=== PATIENT | female | born 1945 | race Caucasian/White ===

== ENCOUNTER → 2020-07-04 09:55 | Outpatient (CLI) | payer MEDICARE, OTHER, SELFPAY ==
[2020-07-06 15:33] LABS: COVID19 Sendout Not Detected (Not Detect)
== END ==
PROVIDERS: Visit Provider Physician Assistant
DX: Z11.59 Encounter for screening for other viral diseases (principal)
CPT/HCPCS: 87635

== ENCOUNTER 2020-07-07 08:42 | Day surgery (SDC) | payer MEDICARE, OTHER, SELFPAY ==
[2020-07-02 12:07] VITALS: BMI 28.6
[2020-07-07] VITALS (15 sets, daily range): BP systolic 102–141; BP diastolic 35–94; PULSE 65–77; RESP 10–75; TEMP 36.2–36.7; O2SAT 94–99; BMI 28.6
--- NOTE | 2020-07-07 07:43 | DI.RAD.S_ITS ---
PROCEDURE: XR KNEE LT 1TO2V INDICATIONS: post op total knee TECHNIQUE: 2 view(s) of the knee acquired. COMPARISON: None. FINDINGS: Bones: Patient is status post knee joint arthroplasty. Hardware components are in expected positions. Visualized bony structures are intact. Soft tissues: Overlying postoperative changes are noted. IMPRESSION: Expected postoperative appearance Dictated by: Roland Romeo M.D. on 07/07/2020 at 14:45 Approved by: Roland Romeo M.D. on 07/07/2020 at 14:46
[2020-07-07] MEDS: LACTATED RINGERS 1,000 ML 42 ML IV (09:30)
[2020-07-07] MEDS: ACETAMINOPHEN 325 MG TABLET 975 MG PO (09:44)
[2020-07-07] MEDS: CELECOXIB 200 MG CAPSULE PO (09:44)
[2020-07-07] MEDS: PREGABALIN 75 MG CAPSULE PO (09:45)
--- NOTE | 2020-07-07 09:58 | PM.PREOP ---
Pre-operative Note COVID-19 COVID-19 status: Negative Result date/Date tested (Pos, Neg/Pending): 07/04/20 Interval Note History & Physical reviewed/Exam performed by Physician: Yes Changes to H&P: No
--- NOTE | 2020-07-07 10:10 | P.OP_ITS ---
Operative Date/Time/Diagnoses Date of procedure: 07/07/20 Time of procedure: 12:20 Pre-op diagnosis: Left knee osteoarthritis Post-op diagnosis: same Procedure & Clinicians Procedure: Left total knee replacement Same procedure as scheduled: Yes Indications: The patient has had progressively worsening left knee pain with radiographic changes consistent with arthritis. Non-operative management has failed and the patient has requested total knee replacement. The risks, benefits and alternatives to surgery were discussed with the patient prior to proceeding. Risks discussed included, but were not limited to, failure to relieve pain, stiffness, infection, nerve damage, deep venous thrombosis, pulmonary embolism, stroke, coma, heart attack, permanent paralysis and , as well as the potential need for eventual revision of the prosthetic. Surgeon: Frederick Santoro Mechanical Oxidizer: Cortney Campos Click Yes if Unassisted: No Anesthesia Type: Local Operative Notes Findings: Significant lateral osteoarthritis with moderate patellofemoral change. Relative preservation of the medial compartment. Closure Type: primary Specimen(s): none sent Prosthetic devices, grafts, tissues, transplants, or devices: Implants used in this procedure were manufactured by the [employer] and [email or web address] and included the BCS II Journey total knee replacement with a size 5 left cobalt chromium femur, a size 4 left non porous tibial base plate, a 10 mm cross-linked polyethylene tibial insert and a 32 mm oval Kendal II patella. Applied: implant(s) Estimated Blood Loss (mL): 25 Blood products transfused: none Tourniquet time (min): 46 Procedure in detail: The patient was seen in the pre-operative area, where the left knee was identified as the operative site and this was marked with my initials. The patient received pre-operative antibiotics, and was taken to the operating room and placed on the operative table in the supine position. After satisfactory anesthesia, a multimedia services coordinator out? was performed. The left leg was encircled with a tourniquet about the proximal thigh, and the leg was prepared from the toes to the tourniquet with ChloroPrep in the usual fashion and draped through sterile drapes. The leg was elevated and exsanguinated with Eschmark bandage and the tourniquet inflated to 250 mmHg pressure. The knee was approached through an approximately 18 cm incision centered over the patella and carried into the knee through a medial parapatellar arthrotomy. The anterior osteophytes and soft tissues were removed. The rotational landmarks of [place]'s line and the transepicondylar axis were marked on the femur with electrocautery, and intramedullary guide holes for the femur and tibia were created. The distal femoral cut was made in 6 degrees of valgus using the intramedullary guide at the primary cut setting. The proximal tibial cut was then made using the intramedullary guide, taking 9 mm of bone off the less involved side. The extension gap was checked and the rotation of the femoral component confirmed with the gap balancing blocks. The anterior, posterior and chamfer cuts were then made. The posterior osteophytes and soft tissues were then removed. The posterior capsule was injected with part of a mixture of 60 ml 0.25% Marcaine mixed with 20 ml Exparel and 4 mg of morphine for post-operative pain control. The remainder of this mixture was injected into the capsule and subcutaneous tissues during cement curing. The tibia was prepared with the rotation set by an extra medullary guide. Trial tibial and femoral components were then placed and the intercondylar notch cut through the femoral trial. Range of motion was 0-135 degrees, with good stability throughout the range. The patella was then cut to accommodate the patellar prosthetic. There was no need for a lateral release. The trials were then removed, and the femoral hole plugged with a bone plug. The bone was prepared with pulsatile lavage, and dried with a sponge. Cement was applied and the final prosthetics placed. Excess cement was removed during and after cement curing. After confirming there was no extruded cement posteriorly, the final tibial insert was placed. The knee was copiously irrigated and the tourniquet deflated. Hemostasis was obtained. The capsule was closed with interrupted # 2 polyester sutures. The subcutaneous layer was closed with 3-0 Vicryl, and the skin with a running 3-0 V-Lock suture and Dermabond. An Aquacel Ag dressing was applied and the patient was taken to recovery having tolerated the procedure well. Complications: none Post-operative Condition: stable Disposition: PACU Plan for aftercare: The patient will be maintained on a standard total knee replacement protocol with weight bearing as tolerated. The patient will receive aspirin and sequential compression devices for DVT prophylaxis. The patient will be discharged home when safe for the home environment.
[2020-07-07] MEDS: CEFAZOLIN 2 GM/100 ML FROZ.PIGGY IV (10:50)
[2020-07-07] MEDS: TRANEXAMIC ACID 1,000 MG VIAL 1000 MG INJ (11:05)
--- NOTE | 2020-07-07 11:09 | SUR.OPER ---
Supine on padded OR bed. Pillow under head, arms secured on padded armboards <90 degree abduction. Safety belt across torso. Non-operative leg secured with tape over blanket over lower leg. Operative leg secured in DeMayo positioner. Foam padded brace at thigh of operative leg.
[2020-07-07] MEDS: MORPHINE 4 MG/ML INJ INJ (11:22)
[2020-07-07] MEDS: BUPIVACAINE LIPOSOME 266 MG/20 ML VIAL INJ (11:23)
[2020-07-07] MEDS: BUPIVACAINE 0.25% W/ EPI 30 ML VIAL 60 ML INJ (11:23)
[2020-07-07] MEDS: fentaNYL 100 MCG/2 ML INJ IV ×3 (13:03→13:37)
[2020-07-07] MEDS: OXYCODONE IR 5 MG TABLET PO (13:14)
[2020-07-07] MEDS: hydrOXYzine 50 MG/ML INJ 25 MG IM (13:18)
--- NOTE | 2020-07-07 13:52 | SUR.PHASEI ---
REPORT TO MICHELLE FORBES
[2020-07-07] MEDS: LACTATED RINGERS 1,000 ML 100 ML IV ×2 (14:54→22:09)
[2020-07-07] MEDS: OXYCODONE IR 10 MG TABLET PO ×3 (15:26→22:06)
--- NOTE | 2020-07-07 15:35 | PC.NURSE ---
Safe hand off from PACU. Patient arrived on floor at 1350. Patient is alert and oriented. VSS, lung sounds dim, but clear. Patient is 98% on Room Air. Patient CMS is intact, but patient is unable to feel if she voids and had an incontinent void. Was able to get up to bedside commode 1 person assist. L knee aquacell w/ acewrap is clean/dry and intact. Pain level is 5/10. Patient was educated about the use of her call light and bed is low and locked. Bed alarm is active.
--- NOTE | 2020-07-07 17:01 | PC.NURSE ---
Addendum entered by Jayshree Zaman R.N. 07/07/20 22:18: Med w/Oxy for discomfort at this time. Continue to monitor. Addendum entered by Jayshree Zaman R.N. 07/07/20 21:50: Pt resting quietly at this time. Denies discomfort. Dsg CDI Stable post op course. Call light w/in reach, bed alarm on for pt safety. Continue w/plan of care. Addendum entered by Jayshree Zaman R.N. 07/07/20 18:24: Pt requesting pain med. Med w/Oxycodone at 1815 Will assess Original Note: Pt sitting in chair, Alert/oriented. Lungs clear , SpO2 96% RA Jf/aquacell dsg to left knee CDI. Med @ 1530 for discomfort w/fair relief IVF LR @ 125 infusing into left arm via pump w/o incidence. Call light w/in reach. Pt calls appropriately for needs.
--- NOTE | 2020-07-07 17:07 | PT.IIE ---
Current Diagnoses Unilateral primary osteoarthritis, left knee (07/07/20) Surgery Performed Operation Date: 07/07/20 10:45 Actual Procedures p Total Knee Arthroplasty(Left) - Frederick Santoro MD Surgical History (Last Updated 07/03/20 @ 14:52 by Krista Johnson, RN) History of colon resection (Acute) Hx of thumb surgery (Acute) Hx of tonsillectomy (Acute) Medical History (Last Updated 07/03/20 @ 14:56 by Krista Johnson RN) Arthritis (Acute) GERD (gastroesophageal reflux disease) (Acute) Osteoarthritis (Acute) Psoriasis (Acute) Physical Therapy Inpatient Evaluation/Re-Eval M1 PT/OT-IP Prior Functional Status Start: 07/07/20 15:32 Freq: NEEDED Status: Active Protocol: Document 07/07/20 16:54 AW (Rec: 07/07/20 17:07 AW [email or web address]) Medical Review Prior Functional Status Medical History Reviewed Yes Communication WNL. No known deficits Mobility and Gait Pt is independent with all mobility. She uses no AD and denies meaningful limit although she states walking uphill has become more challenging. Activities of Daily Living and IADL's IND Social History Household Members spouse Living Arrangements House Number of Stairs To Enter/Railing? 1 DEE with no railing at side door. Pt can park close to side door. There is a sunken living room in the home but pt states she has no need to access that part of the house. Home Environment Standard Height Toilet,Walk in Shower,Built-In Shower Seat Home Equipment Front Wheel Walker,Grab Bars In Shower Employment Status Retired Additional Social History Comment Pt lives with her spouse, José Manuel, who is retired. He will be available and able to assist at discharge as needed. M2 PT-IP Current Condition Start: 07/07/20 15:32 Freq: NEEDED Status: Active Protocol: Document 07/07/20 16:54 AW (Rec: 07/07/20 17:07 AW [email or web address]) Physical Therapy Current Condition Current Condition Evaluation Date 07/07/20 Treatment Diagnosis L TKA; difficulty in walking Onset Date 07/07/20 Weight Bearing Status Weight Bearing Status Weight Bear as Tolerated M3 PT-IP Subjective Start: 07/07/20 15:32 Freq: NEEDED Status: Active Protocol: Document 09/21/20 16:54 AW (Rec: 07/07/20 17:07 AW [email or web address]) Subjective Physical Therapy Visit Type Type Initial Evaluation Visit Start Time 15:50 Visit Stop Time 16:22 Total Visit Minutes 32 Notes Pt's spouse is present throughout evaluation Physical Therapy Visit Comments Patient Comments Pt has been up to the commode with nursing, is willing to work with PT Patient Goals 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 Therapy Pain Assessment Pain When Pain Assessed During Mobility Pain Present Pain Present Pain Reported Location Left Knee Intensity 5 Scale Used 5/10 at rest and with mobility Pain Management Techniques Apply Cold,Timing of Activity with Medications M4 PT-IP Mobility and Gait Start: 07/07/20 15:32 Freq: NEEDED Status: Active Protocol: Document 07/07/20 16:54 AW (Rec: 07/07/20 17:07 AW [email or web address]) PT-Bed Mobility Assessment Supine to Sit Supine to Sit Standby Assistance Scooting Scooting to Edge of Bed Standby Assistance PT-Transfer Assessment Sit to and From Stand Sit to and from Stand Contact Guard Assistance,2 Person Assistance Equipment Transfer Assistive Device Gait Belt,Front Wheeled Walker Transfers Transfer Destination Chair Transfer Technique pt ambulated with FWW Transfer Ability Level of Assist Contact Guard Assistance Comments Mobility Comments Pt was lying in the bed as PT arrived. With HOB flat, pt completed supine to sit and dangled her legs off the left side of the bed SBA. She reported mild lightheadedness which resolved within a minute . BP was stable. Pt stood from the bed in lowest position CGA using FWW. She ambulated haltingly with FWW SBA for a total of 10 feet before transferring to the chair CGA and cues to use her hands on the chair arms to slow her descent. Pt refused further mobility, citing increased pain. She was positioned on tghe chair with call light and all needs in reach, ice packs applied to left knee, and spouse visiting in the room. Gait Assessment Gait Gait Assistance Required: Contact Guard Assist,1 Person Assist Distance (Feet) 10 Able to Maintain Weight Bearing Status Yes During Gait Assistive Devices Assistive Device Gait Belt,Front Wheeled Walker Gait Deviations General Gait Pattern Antalgic,Decreased Stride Length,Decreased Feet Clearance,Flexed Trunk,Step-to Gait Factors Limiting Gait Function Factors Limiting Gait Function Decreased Sensation,Decreased Strength,Limited Range of Motion,Pain,Poor Balance,Poor Safety Awareness Comments Gait Comments Pt ambulated in the room with FWW using the walker for heavy weightbearing to offload her left knee and wincing frequently. Pt responded well to cues for deep breathing. Stair Climbing Assessment Comments Stair Climbing Comments Not assessed due to pt pain. PT-Balance Assessment Sitting Balance and Reactions Static Sitting Balance Ability Good Dynamic Sitting Balance Ability Good Standing Balance and Reactions Static Standing Balance Ability Good Dynamic Standing Balance Ability Good Device Used FWW M5 PT-IP Objective Assessments Start: 07/07/20 15:32 Freq: NEEDED Status: Active Protocol: Document 07/07/20 16:54 AW (Rec: 07/07/20 17:07 AW [email or web address]) Orientation Orientation/Cognition Level of Alertness Alert Orientation Name,Day of Week,Place, Situation Language Function Ability No Deficits Noted Safety Awareness Understands Safety Issues Memory Description No Deficits Noted Gross Range of Motion Upper Extremity ROM Assessment Within Functional Limits Lower Extremity ROM Assessment Left Impaired Strength Upper Extremity Strength Assessment Within Functional Limits Lower Extremity Strength Assessment Left Impaired Comments Strength Comments RLE grossly 5/5 Coordination Assessment Gross Coordination Gross Coordination WNL Sensation Assessment Sensation Gross Sensation WNL Muscle Tone Muscle Tone WNL Yes M6 PT-IP Treatment Start: 07/07/20 15:32 Freq: NEEDED Status: Active Protocol: Document 07/07/20 16:54 AW (Rec: 07/07/20 17:07 AW [email or web address]) Physical Therapy Treatment Education Education Provided Weight Bearing Status,Post-Op Packet,Safety Other Treatments Other Treatment Performed Provided education on role of PT, plan of care, weightbearing status, and safe use of FWW. M7 PT-IP Assessment and Plan Start: 07/07/20 15:32 Freq: NEEDED Status: Active Protocol: Document 07/07/20 16:54 AW (Rec: 07/07/20 17:07 AW [email or web address]) PT Summary Assessment and Plan Potential Rehabilitation Potential Good Status of Condition at Evaluation Evolving Summary Impairments Pain,ROM,Strength,Balance, Sensation,Bed Mobility, Transfers,Gait Assessment Summary Kecia is a 75 yo woman seen for PT evaluation on POD1 following L TKA. She is independent in all regards at baseline and lives with her spouse who will be available and able to assist as needed at discharge. On evaluation, pt was primarily limited by pain and required CGA for transfers and ambulation with FWW. PT anticipates she will be safe to discharge to home with assist and outpatient PT once medically cleared. Goals Bed Mobility Goal Independent Transfer Goal Independent,Front Wheeled Walker Gait Goal Independent,Front Wheel Walker Gait Distance 150 Other Goals - up/down platform step with FWW CGA Days to Meet Goals 2 Frequency of Treatment Frequency Of Treatment Twice a Day Treatment Plan Physical Therapy Treatment Plan Bed Mobility Training,Transfer Training,Gait Training, Therapeutic Exercise,Balance Retraining,Post Op Education, Discharge Planning,Hot or Cold Pack Recommendations To Nursing Amount of Assist Needed Standby Assistance,1 Person Assist Discharge Recommendations PT Discharge Recommendations Home with Assistance, Outpatient PT Transportation Needs at Discharge Private Vehicle
[2020-07-07] MEDS: ASPIRIN EC 81 MG TABLET PO (20:37)
[2020-07-07] MEDS: DOCUSATE 100 MG CAPSULE PO (20:37)
[2020-07-07] MEDS: ACETAMINOPHEN 325 MG TABLET 650 MG PO (20:38)
[2020-07-07] MEDS: IBUPROFEN 400 MG TABLET 800 MG PO (20:43)
[2020-07-08 00:30] VITALS: BP 106/54; PULSE 69; RESP 18; TEMP 36.6; O2SAT 93
[2020-07-08] MEDS: OXYCODONE IR 10 MG TABLET PO ×2 (03:58→10:09)
[2020-07-08 04:17] VITALS: BP 111/66; PULSE 73; RESP 18; TEMP 36.1; O2SAT 96
[2020-07-08] MEDS: PANTOPRAZOLE 40 MG TABLET PO (05:47)
[2020-07-08 05:53] LABS: Hematocrit 37.7 % (36-46); Hemoglobin 12.8 g/dL (12.0-16.0)
[2020-07-08 07:30] VITALS: BP 113/58; PULSE 67; RESP 16; TEMP 36.8; O2SAT 94
--- NOTE | 2020-07-08 07:33 | PM.DS.1 ---
History of Present Illness History of Present Illness Date Patient Seen: 07/08/20 Time Patient Seen: 07:33 Chief complaint: OPB Narrative: The history and physical are contained in the chart previously completed note. Please refer to that note for this information. Discharge Providers Provider Discharge Date: 07/08/20 Primary care physician: Mike Tapia MD Consults: 07/07/20 14:08 Consult to Discharge Planning Routine Comment: Consult to Physical Therapy Evaluate & Treat Comment: Physician Instructions: postop TKA protocol Discharge provider: Frederick Santoro MD Summary Hospital Course Discharge Diagnosis: 1. Left knee osteoarthritis 2. Mild post hemorrhagic anemia Hospital Course: Patient was admitted to the hospital and taken directly to the operating room on July 07, 2020. She underwent a left total knee replacement without significant complications. She was stable postoperative day 1 with excellent pain control. At the time of this dictation is anticipated that she will be able to go home after physical therapy. Status at Discharge Cognitive/behavioral status at discharge: oriented Functional status at discharge: uses cane/walker Overall status at discharge: patient is progressing back to baseline Time Spent with Patient Time spent: Less than 30 minutes Exam Vital Signs (past 8 hours): - 07/08/20 00:30 07/08/20 04:17 Temperature 97.9 F 97.0 F L Pulse Rate 69 73 Respiratory Rate 18 18 Blood Pressure 106/54 L 111/66 Pulse Oximetry 93 96 Oxygen Delivery Method Room Air Oxygen Flow Rate 0 Narrative Exam Narrative: Left knee wound is dressed with no drainage on the bandage. Calf is soft. Light touch and motion are intact in the left lower extremity. Objective Labs Result Diagrams: 07/08/20 05:29 Labs: Laboratory Results - last 24 hr 07/08/20 05:29 Hgb 12.8 Hct 37.7 Discharge Assessment & Plan Assessment and Plan Assessment: Stable postop day 1 status post left total knee replacement. Pain control is satisfactory. Likely discharge today. Plan of Treatment: Follow-up in my office in 10-14 days. Discharge prescriptions for Percocet are provided as well as discharge instructions for use of ibuprofen and Tylenol. She will use aspirin 81 mg p.o. b.i.d. for DVT prophylaxis. She will have outpatient physical therapy. Discharge Plan Discharge Plan Patient Disposition: Home Discharge Med Rec/Prescriptions Prescriptions: New acetaminophen 325 mg Tablet 650 mg PO TID 30 Days Qty: 180 RF: 0 aspirin 81 mg Tablet,Delayed Release (Dr/Ec) 81 mg PO BID 42 Days Qty: 84 RF: 0 oxycodone 5 mg Tablet 5 mg PO Q4H PRN (Reason: Pain, Moderate (4-6)) Qty: 40 RF: 0 Continued atorvastatin [Lipitor] 20 mg Tablet 20 mg PO DAILY RF: 0 cetirizine [Aller-Susanne] 10 mg Tablet 10 mg PO DAILY RF: 0 ibuprofen 800 mg Tablet 800 mg PO TID RF: 0 omeprazole 40 mg Capsule,Delayed Release(Dr/Ec) 40 mg PO DAILY RF: 0 fluoxetine 20 mg Capsule 20 mg PO DAILY RF: 0 oxybutynin chloride 15 mg Tablet Extended Release 24hr 15 mg PO DAILY RF: 0 Discontinued oxycodone 5 mg Capsule 5 mg PO Q4-6H PRN (Reason: Pain) RF: 0 aspirin 81 mg Tablet,Delayed Release (Dr/Ec) 81 mg PO DAILY RF: 0 Follow up/Referrals: Frederick Santoro MD [Physician] - 2 Weeks Discharge Orders: Discharge (Order); Ordered 07/08/20 Ordered By: Frederick Santoro Provider Discharge Instructions Diet: Diet as Tolerated and Regular Activity: You may bear weight as tolerated on your left knee. Cold/Heat Therapy: Apply ice to the left knee for 15 minutes every hour as needed for pain control. Skin/Wound/Dressing Care Report to your healthcare provider any signs of infection, such as:: chills, fever, night sweats, increased pain, unusual drainage and unusual redness Dressing: Remove the Jf wrap 3 days after surgery. You may then shower normally. Leave the deeper dressing in place until follow-up. If the central strip of the deeper dressing becomes saturated with water or blood, please call the office to have it changed. Visit Report/Discharge Packet Instructions: DI for Knee Replacement Stand Alone Forms: Surgery Discharge Discharge Data Primary Care Provider: Mike Tapia Attending Provider: Frederick Santoro Quality VTE Deep Vein Thrombosis/Pulmonary Embolism Present on Admission: No
[2020-07-08] MEDS: ASPIRIN EC 81 MG TABLET PO (09:11)
[2020-07-08] MEDS: ACETAMINOPHEN 325 MG TABLET 650 MG PO (09:12)
[2020-07-08] MEDS: IBUPROFEN 400 MG TABLET 800 MG PO (09:13)
[2020-07-08] MEDS: ATORVASTATIN 20 MG TABLET PO (09:13)
[2020-07-08] MEDS: FLUoxetine 20 MG CAPSULE PO (09:14)
[2020-07-08] MEDS: DOCUSATE 100 MG CAPSULE PO (09:14)
--- NOTE | 2020-07-08 11:01 | PT.IPTN ---
Current Diagnoses Unilateral primary osteoarthritis, left knee (07/07/20) Surgery Performed Operation Date: 07/07/20 10:45 Actual Procedures p Total Knee Arthroplasty(Left) - Frederick Santoro MD Physical Therapy Treatment Note M2 PT-IP Current Condition Start: 07/07/20 15:32 Freq: NEEDED Status: Active Protocol: Document 07/07/20 16:54 AW (Rec: 07/07/20 17:07 AW [email or web address]) Physical Therapy Current Condition Current Condition Evaluation Date 07/07/20 Treatment Diagnosis L TKA; difficulty in walking Onset Date 07/07/20 Weight Bearing Status Weight Bearing Status Weight Bear as Tolerated M3 PT-IP Subjective Start: 07/07/20 15:32 Freq: NEEDED Status: Active Protocol: Document 07/08/20 10:46 AW (Rec: 07/08/20 11:01 AW [email or web address]) Subjective Physical Therapy Visit Type Type Treatment Note Visit Start Time 09:32 Visit Stop Time 09:56 Total Visit Minutes 24 Physical Therapy Visit Comments Patient Comments I'm really starting to hurt. Therapy Pain Assessment Pain When Pain Assessed During Mobility Pain Present Pain Present Pain Reported Location Left Knee Intensity 6 Pain Management Techniques Apply Cold,Timing of Activity with Medications M4 PT-IP Mobility and Gait Start: 07/07/20 15:32 Freq: NEEDED Status: Active Protocol: Document 07/08/20 10:46 AW (Rec: 07/08/20 11:01 AW [email or web address]) PT-Bed Mobility Assessment Supine to Sit Supine to Sit Standby Assistance Scooting Scooting to Edge of Bed Standby Assistance PT-Transfer Assessment Sit to and From Stand Sit to and from Stand Standby Assistance Equipment Transfer Assistive Device Gait Belt,Front Wheeled Walker Orthotic/Prosthetic Devices or Brace: No Transfers Transfer Destination Chair Transfer Technique pt ambulated with FWW Transfer Ability Level of Assist Standby Assistance Comments Mobility Comments Pt was lying in the bed as PT arrived, complaining of 6/10 pain at rest but willing to work with PT. She completed supine to sit by using BUE to move her left leg toward the left side of the bed SBA. She sat EOB and denied any lightheadedness or nausea. Pt stood from the bed using FWW SBA with cues to move her left leg out in front before attempting to stand. Pt winced with pain upon initial standing but was able to distribute her weight evenly before initiating gait. She ambulated around the room for a total of 30 feet with FWW CGA. She initiated gait with step to patterning and a tendency to hop onto her right foot. She responded well to cues for small but equal- length footsteps and was able to maintain step through patterning for the remaining 15 feet. She complained of increased pain and requested to sit on the chair, transferring SBA. Pt was positioned on the chair with call light and all needs in reach, fresh ice packs on her operative knee. Gait Assessment Gait Gait Assistance Required: Contact Guard Assist Distance (Feet) 30 Able to Maintain Weight Bearing Status Yes During Gait Assistive Devices Assistive Device Gait Belt,Front Wheeled Walker Orthotic/Prosthetic Devices or Brace: No Gait Deviations General Gait Pattern Antalgic,Decreased Stride Length,Decreased Feet Clearance,Flexed Trunk,Step-to Gait Factors Limiting Gait Function Factors Limiting Gait Function Decreased Activity Tolerance, Decreased Strength,Limited Range of Motion,Pain,Poor Balance Comments Gait Comments See mobility comments for details. Stair Climbing Assessment Comments Stair Climbing Comments Not assessed. Pt must complete training on platform step before discharge. PT-Balance Assessment Sitting Balance and Reactions Static Sitting Balance Ability Normal Dynamic Sitting Balance Ability Normal Standing Balance and Reactions Static Standing Balance Ability Good Dynamic Standing Balance Ability Good Device Used FWW M5 PT-IP Objective Assessments Start: 07/07/20 15:32 Freq: NEEDED Status: Active Protocol: Document 07/07/20 16:54 AW (Rec: 07/07/20 17:07 AW [email or web address]) Orientation Orientation/Cognition Level of Alertness Alert Orientation Name,Day of Week,Place, Situation Language Function Ability No Deficits Noted Safety Awareness Understands Safety Issues Memory Description No Deficits Noted Gross Range of Motion Upper Extremity ROM Assessment Within Functional Limits Lower Extremity ROM Assessment Left Impaired Strength Upper Extremity Strength Assessment Within Functional Limits Lower Extremity Strength Assessment Left Impaired Comments Strength Comments RLE grossly 5/5 Coordination Assessment Gross Coordination Gross Coordination WNL Sensation Assessment Sensation Gross Sensation WNL Muscle Tone Muscle Tone WNL Yes M6 PT-IP Treatment Start: 07/07/20 15:32 Freq: NEEDED Status: Active Protocol: Document 07/08/20 10:46 AW (Rec: 07/08/20 11:01 AW [email or web address]) Physical Therapy Treatment Exercises Exercises Ankle Pumps,Quad Sets,Passive Knee Extension Hang Education Education Provided Weight Bearing Status,Safety Other Treatments Other Treatment Performed Continued to reinforce positioning with pt to decrease amount of time spent with knee resting in flexion. M7 PT-IP Assessment and Plan Start: 07/07/20 15:32 Freq: NEEDED Status: Active Protocol: Document 07/08/20 10:46 AW (Rec: 07/08/20 11:01 AW [email or web address]) PT Summary Assessment and Plan Potential Rehabilitation Potential Good Status of Condition at Evaluation Evolving Summary Impairments Pain,ROM,Strength,Balance, Sensation,Bed Mobility, Transfers,Gait Progress Towards Goals Progressing Toward Goals,Slow Progress due to Pain Assessment Summary Kecia was able to progress her gait distance with FWW and improve her gait patterning at this visit. She is improving in confidence but remains limited by pain. Will attempt to conduct caregiver training including platform step at PM session. Goals Bed Mobility Goal Independent Transfer Goal Independent,Front Wheeled Walker Gait Goal Independent,Front Wheel Walker Gait Distance 150 Other Goals - up/down platform step with FWW CGA Days to Meet Goals 2 Frequency of Treatment Frequency Of Treatment Twice a Day Treatment Plan Physical Therapy Treatment Plan Bed Mobility Training,Transfer Training,Gait Training, Therapeutic Exercise,Balance Retraining,Post Op Education, Discharge Planning,Hot or Cold Pack Other Recommendations and Next Treatment CGT, stairs, progress gait Focus distance Recommendations To Nursing Amount of Assist Needed Standby Assistance Discharge Recommendations PT Discharge Recommendations Home with Assistance, Outpatient PT Transportation Needs at Discharge Private Vehicle
--- NOTE | 2020-07-08 13:33 | PT.IPTN ---
Current Diagnoses Unilateral primary osteoarthritis, left knee (07/07/20) Surgery Performed Operation Date: 07/07/20 10:45 Actual Procedures p Total Knee Arthroplasty(Left) - Frederick Santoro MD Physical Therapy Treatment Note M2 PT-IP Current Condition Start: 07/07/20 15:32 Freq: NEEDED Status: Active Protocol: Document 07/07/20 16:54 AW (Rec: 07/07/20 17:07 AW [email or web address]) Physical Therapy Current Condition Current Condition Evaluation Date 07/07/20 Treatment Diagnosis L TKA; difficulty in walking Onset Date 07/07/20 Weight Bearing Status Weight Bearing Status Weight Bear as Tolerated M3 PT-IP Subjective Start: 07/07/20 15:32 Freq: NEEDED Status: Active Protocol: Document 07/08/20 13:17 AW (Rec: 07/08/20 13:33 AW [email or web address]) Subjective Physical Therapy Visit Type Type Treatment Note Visit Start Time 12:45 Visit Stop Time 13:13 Total Visit Minutes 28 Notes Pt's spouse is present and participates in caregiver training. Physical Therapy Visit Comments Patient Comments I'm motivated to go home today. Therapy Pain Assessment Pain When Pain Assessed During Mobility Pain Present Pain Present Pain Reported Location Left Knee Intensity 4 Scale Used 4/10 at rest; unchanged with mobility Pain Management Techniques Apply Cold,Timing of Activity with Medications M4 PT-IP Mobility and Gait Start: 07/07/20 15:32 Freq: NEEDED Status: Active Protocol: Document 07/08/20 13:17 AW (Rec: 07/08/20 13:33 AW [email or web address]) PT-Bed Mobility Assessment Supine to Sit Supine to Sit Standby Assistance Sit to Supine Sit to Supine Standby Assistance Scooting Scooting to Edge of Bed Standby Assistance PT-Transfer Assessment Sit to and From Stand Sit to and from Stand Standby Assistance Equipment Transfer Assistive Device Gait Belt,Front Wheeled Walker Orthotic/Prosthetic Devices or Brace: No Transfers Transfer Destination Bed Transfer Technique pt ambulated with FWW Transfer Ability Level of Assist Standby Assistance Comments Mobility Comments Pt was visiting with her spouse when PT arrived. She was due for pain medication in 15 minutes but decided to proceed with PT before medication as she is highly motivated to leave. Pt completed supine to sit SBA and sit to stand SBA with FWW. She ambulated toward the door and donned her face mask before entering the hallway without need for balance assist while her hands were off the walker. She ambulated into the petit with FWW SBA and participated in stair training with her spouse assisting. She continued to walk with FWW SBA as José Manuel provided SBA and appropriate cues. Pt returned to the room and transferred to the bed, completing sit to supine SBA. She was positioned on the bed and left with call light and all needs in reach. José Manuel remained in the room. Gait Assessment Gait Gait Assistance Required: Standby Assistance Distance (Feet) 80 Able to Maintain Weight Bearing Status Yes During Gait Assistive Devices Assistive Device Gait Belt,Front Wheeled Walker Gait Deviations General Gait Pattern Antalgic,Decreased Stride Length,Decreased Feet Clearance,Flexed Trunk,Step-to Gait Factors Limiting Gait Function Factors Limiting Gait Function Decreased Activity Tolerance, Decreased Strength,Limited Range of Motion,Pain,Poor Balance Comments Gait Comments Pt initiated gait with heavy UE weightbearing and step-to patterning, decreased LLE stance time. She was able to respond to cues for more equal step lengths by taking shorter steps. At one point, she increased her gait speed and bilat step length increased as a consequence. Pt was safe throughout and demonstrated good safety awareness. Stair Climbing Assessment Evaluation Level of Assist On Stairs Contact Guard Assistance,1 Person Assistance Devices Stair Climbing Assistive Devices Front Wheel Walker Technique/Endurance Stair Climbing Direction Ascend and Descend Stair Climbing Technique Step to Step Number of Steps Climbed 1 Stair Climbing Set # Repetitions (reps) 2 Comments Stair Climbing Comments Pt completed platform step ascent and descent with FWW CGA going forward but found it increased her pain significantly. On second trial , she ascended backward with FWW CGA as her provided assist and cues. That was easier. I'll go up backwards at home. PT-Balance Assessment Sitting Balance and Reactions Static Sitting Balance Ability Normal Dynamic Sitting Balance Ability Normal Standing Balance and Reactions Static Standing Balance Ability Good Dynamic Standing Balance Ability Good Device Used FWW M5 PT-IP Objective Assessments Start: 07/07/20 15:32 Freq: NEEDED Status: Active Protocol: Document 07/07/20 16:54 AW (Rec: 07/07/20 17:07 AW [email or web address]) Orientation Orientation/Cognition Level of Alertness Alert Orientation Name,Day of Week,Place, Situation Language Function Ability No Deficits Noted Safety Awareness Understands Safety Issues Memory Description No Deficits Noted Gross Range of Motion Upper Extremity ROM Assessment Within Functional Limits Lower Extremity ROM Assessment Left Impaired Strength Upper Extremity Strength Assessment Within Functional Limits Lower Extremity Strength Assessment Left Impaired Comments Strength Comments RLE grossly 5/5 Coordination Assessment Gross Coordination Gross Coordination WNL Sensation Assessment Sensation Gross Sensation WNL Muscle Tone Muscle Tone WNL Yes M6 PT-IP Treatment Start: 07/07/20 15:32 Freq: NEEDED Status: Active Protocol: Document 07/08/20 13:17 AW (Rec: 07/08/20 13:33 AW [id number]) Physical Therapy Treatment Education Education Provided Weight Bearing Status,Safety Other Treatments Other Treatment Performed Pt's spouse participated in caregiver training and was able to provide safe assist and appropriate cues. M7 PT-IP Assessment and Plan Start: 07/07/20 15:32 Freq: NEEDED Status: Active Protocol: Document 07/08/20 13:17 AW (Rec: 07/08/20 13:33 AW [id number]) PT Summary Assessment and Plan Potential Rehabilitation Potential Good Status of Condition at Evaluation Stable Summary Impairments Pain,ROM,Strength,Balance, Sensation,Bed Mobility, Transfers,Gait Progress Towards Goals Progressing Toward Goals Assessment Summary Kecia and her are confident in their ability to access their home and to navigate safely. Outpatient PT is scheduled to begin this Tuesday. Pt is safe for discharge with assist and OP PT. Goals Bed Mobility Goal Independent Transfer Goal Independent,Front Wheeled Walker Gait Goal Independent,Front Wheel Walker Gait Distance 150 Other Goals - up/down platform step with FWW CGA Days to Meet Goals 2 Frequency of Treatment Frequency Of Treatment Twice a Day Treatment Plan Physical Therapy Treatment Plan Bed Mobility Training,Transfer Training,Gait Training, Therapeutic Exercise,Balance Retraining,Post Op Education, Discharge Planning,Hot or Cold Pack Recommendations To Nursing Amount of Assist Needed Standby Assistance Discharge Recommendations PT Discharge Recommendations Home with Assistance, Outpatient PT Transportation Needs at Discharge Private Vehicle
[2020-07-08] MEDS: OXYCODONE IR 5 MG TABLET PO (13:44)
--- NOTE | 2020-07-08 14:14 | PC.NURSE ---
Discharge: Patient given discharge instructions, prescriptions, and her questions were addressed. She has all of her belongings with her. Taken off the unit by this writer editor in wheelchair. taking her home in private vehicle.
== END 2020-07-08 14:15 | disposition home or self-care (01) ==
LOC: OR 08:47 → AC 08:48
PROVIDERS: PCP Family Medicine; Referring Provider Orthopaedic Surgery; Visit Provider Orthopaedic Surgery
PROC: 0SRD0JZ Replacement of Left Knee Joint with Synthetic Substitute, Open Approach (ICD-10-PCS; CPT 27447; principal; 2020-07-07 10:45)
DX: M17.12 Unilateral primary osteoarthritis, left knee (principal); K21.9 Gastro-esophageal reflux disease without esophagitis; Z86.73 Personal history of transient ischemic attack (TIA), and cerebral infarction without residual deficits; F17.210 Nicotine dependence, cigarettes, uncomplicated
CPT/HCPCS: 27447; 36415; 73560; 85014; 85018; 97110; 97116; 97161; 97530; C1776; C9290; J0690; J1100; J2250; J2270; J2405; J2704; J3010; J3410